=== PATIENT | female | born 1945 | race Caucasian/White ===

== ENCOUNTER 2017-06-27 19:30 | Inpatient (IN) ==
[2017-06-27] MEDS ORDERED: SODIUM CHLORIDE 0.9% 1,000 ML IV STA (20:06)
[2017-06-27 20:16] LABS: Basophils % 0.6 % (0.0-0.8); Eosinophils % 0.2 % (0.00-10.9); Hemoglobin 12.2 GM/DL (12.0-16.0); Immature Granulocytes Absolute 0.05 #; Lymphocytes # 0.5 10*3/uL (1.4-4.0); Lymphocytes % 10.9 % (21.3-54.2); Mean Corpuscular HGB Conc 33.9 GM/DL (32-36); Mean Corpuscular Hemoglobin 31 PG (27-34); Mean Corpuscular Volume 91.1 FL (87-102); Mean Platelet Volume 9.2 FL (9.6-12.0); Monocytes # 0.5 10*3/uL (0.11-0.8); Monocytes % 9.9 % (1.7-12.7); Neutrophils # 3.7 10*3/uL (1.4-7.4); Neutrophils % 77.4 % (38.7-73.9); Platelet Count 193 T/CUMM (130-400); Red Blood Count 3.95 MC/CUMM (3.8-5.5); Red Cell Distribution Width 13.6 % (9.3-17.3); White Blood Count 4.8 T/CUMM (4-12)
[2017-06-27] MEDS ORDERED: CEFEPIME 2,000 MG in SODIUM CHLORIDE 0.9% 100 ML IV STA (20:20)
[2017-06-27] MEDS ORDERED: VANCOMYCIN INJ 1,000 MG in SODIUM CHLORIDE 0.9% 250 ML IV STA (20:39)
[2017-06-27] MEDS ORDERED: CEFEPIME 2,000 MG VIAL ONE (20:46)
[2017-06-27 20:51] LABS: Alanine Aminotransferase 12 U/L (13-56); Albumin 3.3 G/DL (3.4-5.0); Alkaline Phosphatase 50 U/L (45-117); Aspartate Amino Transferase 11 U/L (0-37); Bilirubin,Total < 0.39 MG/DL (0.2-1.0); Blood Urea Nitrogen 16 MG/DL (7-18); Glucose 126 MG/DL (74-106); Potassium 3.6 MMOL/L (3.5-5.1); Sodium 136 MMOL/L (136-145); Total Protein 6.3 G/DL (6.4-8.3)
[2017-06-27 21:31] LABS: Apearance,Urine Slightly Hazy (Clear); Bilirubin,Urine Negative (Negative); Blood, Urine Negative (Negative); Glucose,Urine (UA) Negative (Negative); Hyaline Casts,Urine 1 /LPF (0-3); Ketones,Urine 20 mg/dL (Negative); Mucus,Urine Occasional /LPF (Occasional); Nitrite,Urine Negative (Negative); Protein,Urine Negative; RBC,Urine 1 /HPF (0-4); Squamous Epithelial Cell,Urine Occasional /HPF (0-10); Urine Specific Gravity 1.021 (1.001-1.035); Urine Urobilinogen < 2.0 EU/DL (0.2-1.0); WBC,Urine 1 /HPF (0-6)
[2017-06-27 21:33] LABS: Urine Color GREEN (Yellow)
[2017-06-27] MEDS ORDERED: NOREPINEPHRINE 8 MG in SODIUM CHLORIDE 0.9% 242 ML IV SCH (22:00)
[2017-06-27] MEDS ORDERED: NOREPINEPHRINE 4 MG/4 ML VIAL IV ONE (22:31)
[2017-06-27] MEDS ORDERED: VANCOMYCIN 1,000 MG VIAL ONE (22:31)
[2017-06-27] MEDS ORDERED: diphenhydrAMINE 50 MG/1 ML VIAL ONE (23:44)
[2017-06-28] MEDS ORDERED: DOBUTamine 500 MG/250 ML PREMIX IV ONE (00:18)
[2017-06-28] MEDS ORDERED: NICOTINE 21 MG/24 HR PATCH TRANSDERM PRN (00:20)
[2017-06-28] MEDS: ALBUTEROL/IPRATROPIUM 3 ML NEB RESP TX SCH ×4 (01:03→21:11)
[2017-06-28] MEDS ORDERED: ENOXAPARIN 40 MG/0.4 ML SYRINGE ONE (01:06)
[2017-06-28] MEDS ORDERED: DOXYCYCLINE HYCLATE 100 MG VIAL ONE (01:06)
[2017-06-28] MEDS: ENOXAPARIN 40 MG/0.4 ML SYRINGE SUBCUT SCH (01:40)
[2017-06-28] MEDS: DOBUTamine 500 MG/250 ML PREMIX IV SCH ×2 (01:55→19:46)
[2017-06-28] MEDS ORDERED: DOXYCYCLINE HYCLATE INJ 100 MG in SODIUM CHLORIDE 0.9% 100 ML IV SCH (02:00)
[2017-06-28] MEDS ORDERED: diphenhydrAMINE 50 MG/1 ML VIAL IV ONE (04:03)
[2017-06-28 06:03] LABS: Basophils % 0.5 % (0.0-0.8); Eosinophils # 0.1 10*3/uL (0.0-0.87); Eosinophils % 1.4 % (0.00-10.9); Hemoglobin 11.2 GM/DL (12.0-16.0); Immature Granulocytes % 0.9 %; Immature Granulocytes Absolute 0.04 #; Lymphocytes # 0.9 10*3/uL (1.4-4.0); Lymphocytes % 21.8 % (21.3-54.2); Mean Corpuscular HGB Conc 33.9 GM/DL (32-36); Mean Corpuscular Hemoglobin 30 PG (27-34); Mean Corpuscular Volume 89.7 FL (87-102); Mean Platelet Volume 9.7 FL (9.6-12.0); Monocytes # 0.3 10*3/uL (0.11-0.8); Monocytes % 6.6 % (1.7-12.7); Neutrophils # 2.9 10*3/uL (1.4-7.4); Neutrophils % 68.8 % (38.7-73.9); Platelet Count 187 T/CUMM (130-400); Red Blood Count 3.68 MC/CUMM (3.8-5.5); Red Cell Distribution Width 13.6 % (9.3-17.3); White Blood Count 4.3 T/CUMM (4-12)
[2017-06-28] MEDS: ACETAMINOPHEN 325 MG TABLET PO PRN (06:09)
[2017-06-28 07:30] LABS: Calcium 7.5 MG/DL (8.5-10.1); Osmolality,Calculated 276.5 MOS/KG (273-304); Potassium 3.1 MMOL/L (3.5-5.1); Risk Ratio 4.93; Thyroid Stimulating Hormone 0.451 uIU/ml (0.358-3.74); VLDL CHOLESTEROL 41.8 MG/DL
[2017-06-28] MEDS: CALCIUM (CARBONATE)/VITAMIN D 500 MG-200 UNIT TABLET PO SCH (08:53)
[2017-06-28] MEDS: PANTOPRAZOLE 40 MG TABLET PO SCH (08:54)
[2017-06-28] MEDS ORDERED: BUMETANIDE 1 MG TABLET PO SCH (09:00)
[2017-06-28] MEDS ORDERED: DEXTROSE 50% 25 GM/50 ML VIAL IV PRN (10:01)
[2017-06-28] MEDS ORDERED: GLUCAGON 1 MG VIAL IM PRN (10:01)
[2017-06-28] MEDS ORDERED: INFLUENZA VIRUS VACCINE 0.5 ML SYRINGE IM ONE (11:22)
[2017-06-28] MEDS: INSULIN LISPRO 100 UNIT/ML SUBCUT SCH ×3 (11:50→23:31)
[2017-06-28] MEDS: ATORVASTATIN 20 MG TABLET PO SCH (11:50)
[2017-06-28] MEDS ORDERED: METHEN/SOD PHOS/METH BLUE/HYOS TABLET PO PRN (11:53)
[2017-06-28] MEDS: VANCOMYCIN INJ 1,000 MG in SODIUM CHLORIDE 0.9% 250 ML IV SCH (14:45)
[2017-06-28] MEDS: ONDANSETRON 4 MG/2 ML VIAL IV PRN ×2 (14:47→21:07)
[2017-06-28] MEDS: MAGNESIUM OXIDE 400 MG TABLET PO SCH ×2 (14:55→20:37)
[2017-06-28] MEDS: busPIRone 15 MG TABLET PO SCH ×2 (14:55→20:38)
[2017-06-28] MEDS: GABAPENTIN 600 MG TABLET PO SCH (20:38)
[2017-06-28] MEDS: DOCUSATE SODIUM 100 MG CAPSULE PO SCH (20:38)
[2017-06-28] MEDS ORDERED: POTASSIUM CHLORIDE 20 MEQ PACK PO ONE (20:43)
[2017-06-28] MEDS ORDERED: MAGNESIUM SULF RIDER 2 GM in PREMIX 1 EACH IV ONE (20:43)
[2017-06-28] MEDS ORDERED: NON-FORMULARY MEDICATION (Metformin Hcl [Metformin Hcl] 1,000 MG) PO SCH (21:00)
[2017-06-28] MEDS ORDERED: NON-FORMULARY MEDICATION (Omeprazole [Omeprazole] 20 MG) PO SCH (21:00)
[2017-06-28] MEDS ORDERED: CARVEDILOL 3.125 MG TABLET PO SCH (21:00)
[2017-06-29] MEDS: ALBUTEROL/IPRATROPIUM 3 ML NEB RESP TX SCH ×4 (02:04→20:59)
[2017-06-29] MEDS: VANCOMYCIN INJ 1,000 MG in SODIUM CHLORIDE 0.9% 250 ML IV SCH ×2 (02:05→13:42)
[2017-06-29] MEDS: ENOXAPARIN 40 MG/0.4 ML SYRINGE SUBCUT SCH (02:05)
[2017-06-29] MEDS: DOBUTamine 500 MG/250 ML PREMIX IV SCH ×2 (02:21→13:56)
[2017-06-29 02:29] LABS: Basophils % 0.2 % (0.0-0.8); Eosinophils # 0.1 10*3/uL (0.0-0.87); Eosinophils % 1.1 % (0.00-10.9); Hematocrit 32.2 VOL% (35.7-47.0); Hemoglobin 11.2 GM/DL (12.0-16.0); Immature Granulocytes % 0.7 %; Immature Granulocytes Absolute 0.04 #; Lymphocytes # 0.7 10*3/uL (1.4-4.0); Mean Corpuscular HGB Conc 34.8 GM/DL (32-36); Mean Corpuscular Hemoglobin 31 PG (27-34); Mean Corpuscular Volume 88.2 FL (87-102); Mean Platelet Volume 9.6 FL (9.6-12.0); Monocytes # 0.3 10*3/uL (0.11-0.8); Neutrophils # 4.2 10*3/uL (1.4-7.4); Platelet Count 194 T/CUMM (130-400); Red Blood Count 3.65 MC/CUMM (3.8-5.5); Red Cell Distribution Width 13.5 % (9.3-17.3); White Blood Count 5.4 T/CUMM (4-12)
[2017-06-29 03:08] LABS: Calcium 7.8 MG/DL (8.5-10.1); Osmolality,Calculated 276.8 MOS/KG (273-304); Potassium 3.6 MMOL/L (3.5-5.1)
[2017-06-29] MEDS: INSULIN LISPRO 100 UNIT/ML SUBCUT SCH ×4 (07:24→20:23)
[2017-06-29] MEDS: ASPIRIN 325 MG TABLET PO SCH (08:08)
[2017-06-29] MEDS: ACETAMINOPHEN 325 MG TABLET PO PRN ×2 (08:08→22:01)
[2017-06-29] MEDS: PANTOPRAZOLE 40 MG TABLET PO SCH (08:09)
[2017-06-29] MEDS: CALCIUM (CARBONATE)/VITAMIN D 500 MG-200 UNIT TABLET PO SCH (08:09)
[2017-06-29] MEDS: DOCUSATE SODIUM 100 MG CAPSULE PO SCH ×2 (08:09→20:21)
[2017-06-29] MEDS: MAGNESIUM OXIDE 400 MG TABLET PO SCH ×3 (08:09→20:22)
[2017-06-29] MEDS: busPIRone 15 MG TABLET PO SCH ×3 (08:09→20:23)
[2017-06-29] MEDS: ATORVASTATIN 20 MG TABLET PO SCH (08:09)
[2017-06-29] MEDS: NICOTINE 21 MG/24 HR PATCH TRANSDERM SCH (08:10)
[2017-06-29] MEDS: GABAPENTIN 600 MG TABLET PO SCH ×2 (08:10→20:22)
[2017-06-29] MEDS: CHOLECALCIFEROL 1,000 UNIT TABLET PO SCH (08:10)
[2017-06-29] MEDS: CITALOPRAM 40 MG TABLET PO SCH (08:10)
[2017-06-29] MEDS ORDERED: glipiZIDE 5 MG TABLET PO SCH (09:00)
[2017-06-29] MEDS ORDERED: MIDODRINE 5 MG TABLET PO ONE (12:00)
[2017-06-29] MEDS: MIDODRINE 5 MG TABLET PO SCH ×3 (12:27→20:22)
[2017-06-30] MEDS: ALBUTEROL/IPRATROPIUM 3 ML NEB RESP TX SCH ×4 (00:07→19:03)
[2017-06-30 01:42] LABS: Basophils % 0.4 % (0.0-0.8); Eosinophils # 0.4 10*3/uL (0.0-0.87); Eosinophils % 8.8 % (0.00-10.9); Hematocrit 32.3 VOL% (35.7-47.0); Hemoglobin 11.1 GM/DL (12.0-16.0); Immature Granulocytes % 0.4 %; Immature Granulocytes Absolute 0.02 #; Lymphocytes % 22.5 % (21.3-54.2); Mean Corpuscular HGB Conc 34.4 GM/DL (32-36); Mean Corpuscular Hemoglobin 31 PG (27-34); Mean Platelet Volume 9.2 FL (9.6-12.0); Monocytes # 0.3 10*3/uL (0.11-0.8); Monocytes % 5.7 % (1.7-12.7); Neutrophils # 2.8 10*3/uL (1.4-7.4); Neutrophils % 62.2 % (38.7-73.9); Platelet Count 160 T/CUMM (130-400); Red Blood Count 3.63 MC/CUMM (3.8-5.5); Red Cell Distribution Width 13.7 % (9.3-17.3); White Blood Count 4.5 T/CUMM (4-12)
[2017-06-30 02:14] LABS: Calcium 7.6 MG/DL (8.5-10.1); Osmolality,Calculated 284.4 MOS/KG (273-304); Potassium 3.5 MMOL/L (3.5-5.1)
[2017-06-30 02:15] LABS: Calcium 7.6 MG/DL (8.5-10.1); Osmolality,Calculated 280.7 MOS/KG (273-304); Potassium 3.4 MMOL/L (3.5-5.1)
[2017-06-30] MEDS: VANCOMYCIN INJ 1,000 MG in SODIUM CHLORIDE 0.9% 250 ML IV SCH ×2 (02:21→13:20)
[2017-06-30] MEDS: ENOXAPARIN 40 MG/0.4 ML SYRINGE SUBCUT SCH (02:21)
[2017-06-30] MEDS: DOBUTamine 500 MG/250 ML PREMIX IV SCH (02:22)
[2017-06-30 03:11] LABS: Band Neutrophils 2 % (0-10); Eosinophils 8 % (0-10); Lymphocytes 28 % (20-55); Segmented Neutrophils 60 % (50-85); Total Cells Counted 100
[2017-06-30 03:12] LABS: Platelet Estimate Normal
[2017-06-30] MEDS: INSULIN LISPRO 100 UNIT/ML SUBCUT SCH ×4 (08:54→20:20)
[2017-06-30] MEDS: NICOTINE 21 MG/24 HR PATCH TRANSDERM SCH (08:54)
[2017-06-30] MEDS: CHOLECALCIFEROL 1,000 UNIT TABLET PO SCH (08:55)
[2017-06-30] MEDS: MAGNESIUM OXIDE 400 MG TABLET PO SCH ×3 (08:55→20:19)
[2017-06-30] MEDS: PANTOPRAZOLE 40 MG TABLET PO SCH (08:55)
[2017-06-30] MEDS: busPIRone 15 MG TABLET PO SCH ×3 (08:55→20:20)
[2017-06-30] MEDS: DOCUSATE SODIUM 100 MG CAPSULE PO SCH ×2 (08:55→20:19)
[2017-06-30] MEDS: CALCIUM (CARBONATE)/VITAMIN D 500 MG-200 UNIT TABLET PO SCH (08:55)
[2017-06-30] MEDS: GABAPENTIN 600 MG TABLET PO SCH ×2 (08:55→20:20)
[2017-06-30] MEDS: CITALOPRAM 40 MG TABLET PO SCH (08:55)
[2017-06-30] MEDS: MIDODRINE 5 MG TABLET PO SCH ×4 (08:55→20:19)
[2017-06-30] MEDS: ATORVASTATIN 20 MG TABLET PO SCH (08:56)
[2017-06-30] MEDS: ASPIRIN 325 MG TABLET PO SCH (08:56)
[2017-06-30] MEDS: ACETAMINOPHEN 325 MG TABLET PO PRN (14:37)
[2017-06-30] MEDS ORDERED: POTASSIUM CHLORIDE 20 MEQ PACK PO ONE (16:21)
[2017-06-30] MEDS: ALBUTEROL 2.5 MG/3 ML NEB RESP TX PRN (17:18)
[2017-06-30 17:38] LABS: Amorphous Crystals,Urine Moderate /HPF (Few); Apearance,Urine CLOUDY (Clear); Bilirubin,Urine Negative (Negative); Blood, Urine Negative (Negative); Glucose,Urine (UA) 50 mg/dL (Negative); Ketones,Urine Negative (Negative); Nitrite,Urine Negative (Negative); Protein,Urine Negative; Urine Color Yellow (Yellow); Urine Urobilinogen < 2.0 EU/DL (0.2-1.0)
[2017-07-01] MEDS: ALBUTEROL/IPRATROPIUM 3 ML NEB RESP TX SCH ×4 (00:18→19:17)
[2017-07-01] MEDS: DOBUTamine 500 MG/250 ML PREMIX IV SCH (00:50)
[2017-07-01] MEDS: ENOXAPARIN 40 MG/0.4 ML SYRINGE SUBCUT SCH (01:10)
[2017-07-01] MEDS: VANCOMYCIN INJ 1,000 MG in SODIUM CHLORIDE 0.9% 250 ML IV SCH ×2 (01:10→16:04)
[2017-07-01] MEDS ORDERED: ALBUTEROL NEB SOLN 5 MG/ML 20 ML/BOTTLE CONT NEB ONE (02:00)
[2017-07-01] MEDS: ALBUTEROL 2.5 MG/3 ML NEB RESP TX PRN (02:22)
[2017-07-01 05:08] LABS: Basophils % 0.2 % (0.0-0.8); Eosinophils # 0.4 10*3/uL (0.0-0.87); Eosinophils % 9.9 % (0.00-10.9); Hematocrit 33.7 VOL% (35.7-47.0); Hemoglobin 11.3 GM/DL (12.0-16.0); Immature Granulocytes % 0.5 %; Immature Granulocytes Absolute 0.02 #; Lymphocytes # 1.3 10*3/uL (1.4-4.0); Lymphocytes % 31.9 % (21.3-54.2); Mean Corpuscular HGB Conc 33.5 GM/DL (32-36); Mean Corpuscular Hemoglobin 31 PG (27-34); Mean Corpuscular Volume 91.1 FL (87-102); Mean Platelet Volume 9.9 FL (9.6-12.0); Monocytes # 0.2 10*3/uL (0.11-0.8); Monocytes % 4.6 % (1.7-12.7); Neutrophils # 2.2 10*3/uL (1.4-7.4); Neutrophils % 52.9 % (38.7-73.9); Platelet Count 149 T/CUMM (130-400); Red Cell Distribution Width 14.2 % (9.3-17.3); White Blood Count 4.1 T/CUMM (4-12)
[2017-07-01 05:35] LABS: Calcium 7.7 MG/DL (8.5-10.1); Osmolality,Calculated 286.5 MOS/KG (273-304); Potassium 4.4 MMOL/L (3.5-5.1)
[2017-07-01 05:51] LABS: Microcytosis 1+; Platelet Estimate Adequate
[2017-07-01] MEDS: CITALOPRAM 40 MG TABLET PO SCH (08:40)
[2017-07-01] MEDS: MIDODRINE 5 MG TABLET PO SCH ×4 (08:40→21:17)
[2017-07-01] MEDS: DOCUSATE SODIUM 100 MG CAPSULE PO SCH ×2 (08:40→20:24)
[2017-07-01] MEDS: CHOLECALCIFEROL 1,000 UNIT TABLET PO SCH (08:40)
[2017-07-01] MEDS: NICOTINE 21 MG/24 HR PATCH TRANSDERM SCH (08:41)
[2017-07-01] MEDS: busPIRone 15 MG TABLET PO SCH ×3 (08:41→20:36)
[2017-07-01] MEDS: ACETAMINOPHEN 325 MG TABLET PO PRN (08:41)
[2017-07-01] MEDS: ASPIRIN 325 MG TABLET PO SCH (08:41)
[2017-07-01] MEDS: ATORVASTATIN 20 MG TABLET PO SCH (08:41)
[2017-07-01] MEDS: CALCIUM (CARBONATE)/VITAMIN D 500 MG-200 UNIT TABLET PO SCH (08:41)
[2017-07-01] MEDS: GABAPENTIN 600 MG TABLET PO SCH ×2 (08:47→20:24)
[2017-07-01] MEDS: MAGNESIUM OXIDE 400 MG TABLET PO SCH ×3 (08:47→20:25)
[2017-07-01] MEDS: INSULIN LISPRO 100 UNIT/ML SUBCUT SCH ×4 (08:47→21:15)
[2017-07-01] MEDS: SODIUM CHLORIDE 0.9% 1,000 ML IV SCH ×2 (11:30→21:09)
[2017-07-01] MEDS: PANTOPRAZOLE 40 MG TABLET PO SCH (14:00)
[2017-07-02] MEDS: SODIUM CHLORIDE 0.9% 1,000 ML IV SCH ×3 (00:30→20:15)
[2017-07-02] MEDS: DOBUTamine 500 MG/250 ML PREMIX IV SCH (00:44)
[2017-07-02] MEDS: ENOXAPARIN 40 MG/0.4 ML SYRINGE SUBCUT SCH (00:44)
[2017-07-02] MEDS: VANCOMYCIN INJ 1,000 MG in SODIUM CHLORIDE 0.9% 250 ML IV SCH ×2 (01:00→15:22)
[2017-07-02] MEDS: ALBUTEROL/IPRATROPIUM 3 ML NEB RESP TX SCH ×4 (03:03→20:48)
[2017-07-02 05:54] LABS: Basophils % 0.5 % (0.0-0.8); Eosinophils # 0.8 10*3/uL (0.0-0.87); Eosinophils % 11.9 % (0.00-10.9); Hematocrit 33.6 VOL% (35.7-47.0); Hemoglobin 10.9 GM/DL (12.0-16.0); Immature Granulocytes % 0.5 %; Immature Granulocytes Absolute 0.03 #; Lymphocytes # 2.8 10*3/uL (1.4-4.0); Lymphocytes % 42.7 % (21.3-54.2); Mean Corpuscular HGB Conc 32.4 GM/DL (32-36); Mean Corpuscular Hemoglobin 31 PG (27-34); Mean Corpuscular Volume 95.2 FL (87-102); Mean Platelet Volume 10.2 FL (9.6-12.0); Monocytes # 0.4 10*3/uL (0.11-0.8); Monocytes % 6.7 % (1.7-12.7); Neutrophils # 2.5 10*3/uL (1.4-7.4); Neutrophils % 37.7 % (38.7-73.9); Platelet Count 128 T/CUMM (130-400); Red Blood Count 3.53 MC/CUMM (3.8-5.5); Red Cell Distribution Width 14.5 % (9.3-17.3); White Blood Count 6.6 T/CUMM (4-12)
[2017-07-02 06:34] LABS: Band Neutrophils 4 % (0-10); Eosinophils 2 % (0-10); Lymphocytes 42 % (20-55); Macrocytosis 1+; Platelet Estimate Normal; Segmented Neutrophils 50 % (50-85); Total Cells Counted 100
[2017-07-02 06:48] LABS: Calcium 7.5 MG/DL (8.5-10.1); Osmolality,Calculated 279.4 MOS/KG (273-304); Potassium 4.8 MMOL/L (3.5-5.1)
[2017-07-02] MEDS: LORazepam 2 MG/1 ML VIAL IV PRN ×2 (09:12→20:23)
[2017-07-02] MEDS: NICOTINE 21 MG/24 HR PATCH TRANSDERM SCH (09:19)
[2017-07-02] MEDS: INSULIN LISPRO 100 UNIT/ML SUBCUT SCH ×4 (09:25→20:23)
[2017-07-02] MEDS: DOCUSATE SODIUM 100 MG CAPSULE PO SCH ×2 (10:22→20:30)
[2017-07-02] MEDS: MAGNESIUM OXIDE 400 MG TABLET PO SCH ×3 (10:22→20:18)
[2017-07-02] MEDS: busPIRone 15 MG TABLET PO SCH ×3 (10:22→20:18)
[2017-07-02] MEDS: MIDODRINE 5 MG TABLET PO SCH ×4 (10:23→20:18)
[2017-07-02 11:34] LABS: ABG Base Excess -2.3 MMOL/L (-2.5-2.5); ABG HCO3 22.5 MMOL/L (20-26); ABG Oxygen Saturation 99.5 % (95-100); ABG PH 7.262 (7.35-7.45); ABG TCO2 23.4 MMOL/L (23-27)
[2017-07-02] MEDS: CALCIUM (CARBONATE)/VITAMIN D 500 MG-200 UNIT TABLET PO SCH (12:01)
[2017-07-02] MEDS: GABAPENTIN 600 MG TABLET PO SCH ×2 (12:01→20:18)
[2017-07-02] MEDS: ATORVASTATIN 20 MG TABLET PO SCH ×2 (12:01→20:18)
[2017-07-02] MEDS: ASPIRIN 325 MG TABLET PO SCH (12:01)
[2017-07-02] MEDS: CITALOPRAM 40 MG TABLET PO SCH (12:01)
[2017-07-02] MEDS: CHOLECALCIFEROL 1,000 UNIT TABLET PO SCH (12:02)
[2017-07-02] MEDS: PANTOPRAZOLE 40 MG TABLET PO SCH (12:02)
[2017-07-02] MEDS: methylPREDNISolone SOD SUC 40 MG/1 ML VIAL IV SCH ×2 (12:46→20:25)
[2017-07-02] MEDS ORDERED: FUROSEMIDE 20 MG/2 ML VIAL IV ONE (15:17)
[2017-07-03] MEDS: ALBUTEROL/IPRATROPIUM 3 ML NEB RESP TX SCH ×6 (00:56→20:05)
[2017-07-03] MEDS: VANCOMYCIN INJ 1,000 MG in SODIUM CHLORIDE 0.9% 250 ML IV SCH ×2 (01:40→14:53)
[2017-07-03] MEDS: ENOXAPARIN 40 MG/0.4 ML SYRINGE SUBCUT SCH (01:40)
[2017-07-03] MEDS: DOBUTamine 500 MG/250 ML PREMIX IV SCH (02:53)
[2017-07-03 03:59] LABS: ABG Base Excess 0.6 MMOL/L (-2.5-2.5); ABG HCO3 26.3 MMOL/L (20-26); ABG Oxygen Saturation 97.6 % (95-100); ABG PH 7.365 (7.35-7.45); ABG TCO2 27.7 MMOL/L (23-27); Allen Test Positive; Pt O2 Delivery Device BIPAP
[2017-07-03] MEDS: SODIUM CHLORIDE 0.9% 1,000 ML IV SCH ×3 (04:14→14:39)
[2017-07-03] MEDS: methylPREDNISolone SOD SUC 40 MG/1 ML VIAL IV SCH ×3 (04:16→21:20)
[2017-07-03 06:14] LABS: Basophils % 0.2 % (0.0-0.8); Immature Granulocytes % 0.8 %; Immature Granulocytes Absolute 0.04 #; Lymphocytes # 1.5 10*3/uL (1.4-4.0); Lymphocytes % 29.9 % (21.3-54.2); Mean Corpuscular HGB Conc 32.4 GM/DL (32-36); Mean Corpuscular Hemoglobin 31 PG (27-34); Mean Corpuscular Volume 94.4 FL (87-102); Mean Platelet Volume 10.3 FL (9.6-12.0); Monocytes # 0.3 10*3/uL (0.11-0.8); Neutrophils # 3.2 10*3/uL (1.4-7.4); Neutrophils % 64.1 % (38.7-73.9); Platelet Count 148 T/CUMM (130-400); Red Cell Distribution Width 14.5 % (9.3-17.3)
[2017-07-03 06:46] LABS: Calcium 7.5 MG/DL (8.5-10.1); Osmolality,Calculated 289.3 MOS/KG (273-304); Potassium 5.2 MMOL/L (3.5-5.1)
[2017-07-03 07:14] LABS: Band Neutrophils 2 % (0-10); Lymphocytes 31 % (20-55); Macrocytosis 1+; Platelet Estimate Normal; Segmented Neutrophils 62 % (50-85); Total Cells Counted 100
[2017-07-03] MEDS: LORazepam 2 MG/1 ML VIAL IV PRN (08:08)
[2017-07-03] MEDS: INSULIN LISPRO 100 UNIT/ML SUBCUT SCH ×4 (08:30→21:30)
[2017-07-03] MEDS: busPIRone 15 MG TABLET PO SCH ×3 (09:27→21:22)
[2017-07-03] MEDS: ASPIRIN 325 MG TABLET PO SCH (09:27)
[2017-07-03] MEDS: NICOTINE 21 MG/24 HR PATCH TRANSDERM SCH (09:28)
[2017-07-03] MEDS: GABAPENTIN 600 MG TABLET PO SCH ×2 (09:28→21:23)
[2017-07-03] MEDS: DOCUSATE SODIUM 100 MG CAPSULE PO SCH ×2 (09:28→21:23)
[2017-07-03] MEDS: CITALOPRAM 40 MG TABLET PO SCH (09:28)
[2017-07-03] MEDS: MAGNESIUM OXIDE 400 MG TABLET PO SCH ×4 (09:28→21:43)
[2017-07-03] MEDS: CALCIUM (CARBONATE)/VITAMIN D 500 MG-200 UNIT TABLET PO SCH (09:29)
[2017-07-03] MEDS: PANTOPRAZOLE 40 MG TABLET PO SCH (09:29)
[2017-07-03] MEDS: CHOLECALCIFEROL 1,000 UNIT TABLET PO SCH (09:30)
[2017-07-03] MEDS: MIDODRINE 5 MG TABLET PO SCH ×4 (09:30→21:24)
[2017-07-03] MEDS ORDERED: FUROSEMIDE 40 MG/4 ML VIAL IV ONE (15:46)
[2017-07-03] MEDS: ATORVASTATIN 20 MG TABLET PO SCH (21:24)
[2017-07-04] MEDS: ALBUTEROL/IPRATROPIUM 3 ML NEB RESP TX SCH ×7 (01:15→23:27)
[2017-07-04] MEDS: SODIUM CHLORIDE 0.9% 1,000 ML IV SCH ×3 (02:08→14:28)
[2017-07-04] MEDS: ENOXAPARIN 40 MG/0.4 ML SYRINGE SUBCUT SCH (02:09)
[2017-07-04] MEDS: VANCOMYCIN INJ 1,000 MG in SODIUM CHLORIDE 0.9% 250 ML IV SCH ×2 (02:44→14:25)
[2017-07-04] MEDS: methylPREDNISolone SOD SUC 40 MG/1 ML VIAL IV SCH ×4 (04:32→21:47)
[2017-07-04 04:43] LABS: Basophils % 0.1 % (0.0-0.8); Hematocrit 35.2 VOL% (35.7-47.0); Hemoglobin 10.9 GM/DL (12.0-16.0); Immature Granulocytes % 0.7 %; Immature Granulocytes Absolute 0.06 #; Lymphocytes # 1.5 10*3/uL (1.4-4.0); Mean Corpuscular Hemoglobin 30 PG (27-34); Mean Corpuscular Volume 95.7 FL (87-102); Mean Platelet Volume 10.7 FL (9.6-12.0); Monocytes # 0.5 10*3/uL (0.11-0.8); Monocytes % 6.1 % (1.7-12.7); Neutrophils # 6.7 10*3/uL (1.4-7.4); Neutrophils % 76.1 % (38.7-73.9); Platelet Count 183 T/CUMM (130-400); Red Blood Count 3.68 MC/CUMM (3.8-5.5); Red Cell Distribution Width 14.6 % (9.3-17.3); White Blood Count 8.8 T/CUMM (4-12)
[2017-07-04 04:55] LABS: ABG Base Excess 0.8 MMOL/L (-2.5-2.5); ABG HCO3 25.1 MMOL/L (20-26); ABG Oxygen Saturation 98.5 % (95-100); ABG PCO2 45.1 MM HG (35-48); ABG PH 7.375 (7.35-7.45); ABG TCO2 23.6 MMOL/L (23-27); Allen Test Positive; Pt O2 Delivery Device BIPAP
[2017-07-04 05:04] LABS: Giant Platelets Few; Hypochromasia 1+; Ovalocytes Slight; Platelet Estimate Adequate
[2017-07-04 05:05] LABS: Microcytosis Slight
[2017-07-04 05:11] LABS: Calcium 7.4 MG/DL (8.5-10.1); Osmolality,Calculated 289.1 MOS/KG (273-304); Potassium 4.6 MMOL/L (3.5-5.1)
[2017-07-04 05:43] LABS: Calcium 7.4 MG/DL (8.5-10.1); Osmolality,Calculated 287.3 MOS/KG (273-304); Potassium 4.6 MMOL/L (3.5-5.1)
[2017-07-04] MEDS: INSULIN LISPRO 100 UNIT/ML SUBCUT SCH ×4 (09:45→21:30)
[2017-07-04] MEDS: NICOTINE 21 MG/24 HR PATCH TRANSDERM SCH (09:46)
[2017-07-04] MEDS: GABAPENTIN 600 MG TABLET PO SCH ×2 (09:47→21:46)
[2017-07-04] MEDS: CHOLECALCIFEROL 1,000 UNIT TABLET PO SCH (09:47)
[2017-07-04] MEDS: MAGNESIUM OXIDE 400 MG TABLET PO SCH ×3 (09:47→21:46)
[2017-07-04] MEDS: DOCUSATE SODIUM 100 MG CAPSULE PO SCH ×2 (09:47→21:45)
[2017-07-04] MEDS: MIDODRINE 5 MG TABLET PO SCH ×4 (09:48→21:50)
[2017-07-04] MEDS: PANTOPRAZOLE 40 MG TABLET PO SCH (09:48)
[2017-07-04] MEDS: ASPIRIN 325 MG TABLET PO SCH (09:48)
[2017-07-04] MEDS: CALCIUM (CARBONATE)/VITAMIN D 500 MG-200 UNIT TABLET PO SCH (09:48)
[2017-07-04] MEDS: CITALOPRAM 40 MG TABLET PO SCH (09:48)
[2017-07-04] MEDS: busPIRone 15 MG TABLET PO SCH ×3 (09:48→21:44)
[2017-07-04] MEDS: DOBUTamine 500 MG/250 ML PREMIX IV SCH (09:58)
[2017-07-04] MEDS ORDERED: LORazepam 2 MG/1 ML VIAL IV PRN (12:06)
[2017-07-04] MEDS ORDERED: FUROSEMIDE 40 MG/4 ML VIAL IV ONE (15:06)
[2017-07-04] MEDS: AZITHROMYCIN INJ 250 MG in SODIUM CHLORIDE 0.9% 250 ML IV SCH (16:45)
[2017-07-04] MEDS: ATORVASTATIN 20 MG TABLET PO SCH (21:47)
[2017-07-05] MEDS: SODIUM CHLORIDE 0.9% 1,000 ML IV SCH ×2 (01:36→18:57)
[2017-07-05] MEDS: ENOXAPARIN 40 MG/0.4 ML SYRINGE SUBCUT SCH (02:05)
[2017-07-05] MEDS: DOBUTamine 500 MG/250 ML PREMIX IV SCH (02:13)
[2017-07-05] MEDS: ALBUTEROL/IPRATROPIUM 3 ML NEB RESP TX SCH ×5 (03:28→21:45)
[2017-07-05] MEDS: methylPREDNISolone SOD SUC 40 MG/1 ML VIAL IV SCH ×4 (03:41→22:01)
[2017-07-05 05:10] LABS: Basophils % 0.1 % (0.0-0.8); Hematocrit 36.5 VOL% (35.7-47.0); Hemoglobin 11.2 GM/DL (12.0-16.0); Immature Granulocytes % 1.3 %; Immature Granulocytes Absolute 0.12 #; Lymphocytes # 0.8 10*3/uL (1.4-4.0); Lymphocytes % 8.6 % (21.3-54.2); Mean Corpuscular HGB Conc 30.7 GM/DL (32-36); Mean Corpuscular Hemoglobin 30 PG (27-34); Mean Corpuscular Volume 96.6 FL (87-102); Mean Platelet Volume 10.3 FL (9.6-12.0); Monocytes # 0.5 10*3/uL (0.11-0.8); Monocytes % 5.4 % (1.7-12.7); Neutrophils # 7.6 10*3/uL (1.4-7.4); Neutrophils % 84.6 % (38.7-73.9); Platelet Count 222 T/CUMM (130-400); Red Blood Count 3.78 MC/CUMM (3.8-5.5); Red Cell Distribution Width 14.6 % (9.3-17.3); White Blood Count 8.9 T/CUMM (4-12)
[2017-07-05 06:18] LABS: Calcium 7.6 MG/DL (8.5-10.1); Osmolality,Calculated 294.3 MOS/KG (273-304); Potassium 4.6 MMOL/L (3.5-5.1)
[2017-07-05] MEDS ORDERED: FUROSEMIDE 40 MG/4 ML VIAL ONE (06:34)
[2017-07-05] MEDS: clonazePAM 0.5 MG TABLET PO PRN ×3 (06:39→22:00)
[2017-07-05] MEDS: FUROSEMIDE 40 MG/4 ML VIAL IV SCH ×2 (06:39→16:40)
[2017-07-05] MEDS: INSULIN LISPRO 100 UNIT/ML SUBCUT SCH ×4 (09:25→22:01)
[2017-07-05] MEDS: NICOTINE 21 MG/24 HR PATCH TRANSDERM SCH (09:25)
[2017-07-05] MEDS: CHOLECALCIFEROL 1,000 UNIT TABLET PO SCH (09:26)
[2017-07-05] MEDS: CITALOPRAM 40 MG TABLET PO SCH (09:26)
[2017-07-05] MEDS: MIDODRINE 5 MG TABLET PO SCH ×4 (09:26→22:00)
[2017-07-05] MEDS: GABAPENTIN 600 MG TABLET PO SCH ×2 (09:27→22:00)
[2017-07-05] MEDS: PANTOPRAZOLE 40 MG TABLET PO SCH (09:27)
[2017-07-05] MEDS: ASPIRIN 325 MG TABLET PO SCH (09:27)
[2017-07-05] MEDS: DOCUSATE SODIUM 100 MG CAPSULE PO SCH ×3 (09:27→22:59)
[2017-07-05] MEDS: MAGNESIUM OXIDE 400 MG TABLET PO SCH ×3 (09:27→21:59)
[2017-07-05] MEDS: CALCIUM (CARBONATE)/VITAMIN D 500 MG-200 UNIT TABLET PO SCH (09:27)
[2017-07-05] MEDS: busPIRone 15 MG TABLET PO SCH ×3 (09:27→22:01)
[2017-07-05] MEDS: AZITHROMYCIN INJ 250 MG in SODIUM CHLORIDE 0.9% 250 ML IV SCH (16:40)
[2017-07-05] MEDS: ATORVASTATIN 20 MG TABLET PO SCH (22:01)
[2017-07-06] MEDS: ALBUTEROL/IPRATROPIUM 3 ML NEB RESP TX SCH ×6 (00:30→21:14)
[2017-07-06] MEDS: DOBUTamine 500 MG/250 ML PREMIX IV SCH (03:02)
[2017-07-06] MEDS: methylPREDNISolone SOD SUC 40 MG/1 ML VIAL IV SCH ×3 (03:17→22:05)
[2017-07-06] MEDS: ENOXAPARIN 40 MG/0.4 ML SYRINGE SUBCUT SCH (03:17)
[2017-07-06 05:08] LABS: Hematocrit 33.5 VOL% (35.7-47.0); Hemoglobin 10.8 GM/DL (12.0-16.0); Immature Granulocytes Absolute 0.07 #; Lymphocytes # 0.5 10*3/uL (1.4-4.0); Lymphocytes % 6.8 % (21.3-54.2); Mean Corpuscular HGB Conc 32.2 GM/DL (32-36); Mean Corpuscular Hemoglobin 30 PG (27-34); Mean Corpuscular Volume 94.1 FL (87-102); Mean Platelet Volume 10.6 FL (9.6-12.0); Monocytes # 0.4 10*3/uL (0.11-0.8); Monocytes % 5.8 % (1.7-12.7); Neutrophils % 86.4 % (38.7-73.9); Platelet Count 252 T/CUMM (130-400); Red Blood Count 3.56 MC/CUMM (3.8-5.5); White Blood Count 6.9 T/CUMM (4-12)
[2017-07-06 05:40] LABS: Calcium 8.3 MG/DL (8.5-10.1); Osmolality,Calculated 299.3 MOS/KG (273-304); Potassium 3.8 MMOL/L (3.5-5.1)
[2017-07-06] MEDS: ASPIRIN 325 MG TABLET PO SCH (09:30)
[2017-07-06] MEDS: CITALOPRAM 40 MG TABLET PO SCH (09:30)
[2017-07-06] MEDS: CALCIUM (CARBONATE)/VITAMIN D 500 MG-200 UNIT TABLET PO SCH (09:30)
[2017-07-06] MEDS: CHOLECALCIFEROL 1,000 UNIT TABLET PO SCH (09:30)
[2017-07-06] MEDS: MAGNESIUM OXIDE 400 MG TABLET PO SCH ×3 (09:30→22:13)
[2017-07-06] MEDS: GABAPENTIN 600 MG TABLET PO SCH ×2 (09:30→22:13)
[2017-07-06] MEDS: MIDODRINE 5 MG TABLET PO SCH ×4 (09:31→22:14)
[2017-07-06] MEDS: DOCUSATE SODIUM 100 MG CAPSULE PO SCH ×2 (09:31→22:13)
[2017-07-06] MEDS: NICOTINE 21 MG/24 HR PATCH TRANSDERM SCH (09:31)
[2017-07-06] MEDS: busPIRone 15 MG TABLET PO SCH ×2 (09:31→17:02)
[2017-07-06] MEDS: FUROSEMIDE 40 MG/4 ML VIAL IV SCH ×2 (09:33→21:58)
[2017-07-06] MEDS: INSULIN LISPRO 100 UNIT/ML SUBCUT SCH ×4 (09:34→22:07)
[2017-07-06] MEDS: PANTOPRAZOLE 40 MG TABLET PO SCH (09:35)
[2017-07-06] MEDS: clonazePAM 0.5 MG TABLET PO PRN (10:08)
[2017-07-06 18:11] LABS: ABG Base Excess 11.5 MMOL/L (-2.5-2.5); ABG HCO3 35.3 MMOL/L (20-26); ABG Oxygen Saturation 95.2 % (95-100); ABG PCO2 53.8 MM HG (35-48); ABG PH 7.452 (7.35-7.45); ABG PO2 76.6 MM HG (80-95); ABG TCO2 33.7 MMOL/L (23-27)
[2017-07-06] MEDS ORDERED: SODIUM CHLORIDE 0.9% 1,000 ML IV ONE (18:41)
[2017-07-06 20:04] LABS: ABG Base Excess 14.4 MMOL/L (-2.5-2.5); ABG HCO3 39.8 MMOL/L (20-26); ABG Oxygen Saturation 93.4 % (95-100); ABG PCO2 53.9 MM HG (35-48); ABG PH 7.486 (7.35-7.45); ABG PO2 70.7 MM HG (80-95); ABG TCO2 41.4 MMOL/L (23-27); Allen Test Positive; Pt O2 Delivery Device BIPAP
[2017-07-06] MEDS: AZITHROMYCIN INJ 250 MG in SODIUM CHLORIDE 0.9% 250 ML IV SCH (20:54)
[2017-07-06] MEDS: ATORVASTATIN 20 MG TABLET PO SCH (22:13)
[2017-07-07] MEDS ORDERED: ETOMIDATE 20 MG/10 ML VIAL IV ONE (00:21)
[2017-07-07] MEDS ORDERED: SUCCINYLCHOLINE 200 MG/10 ML VIAL ONE (00:21)
[2017-07-07] MEDS: ALBUTEROL/IPRATROPIUM 3 ML NEB RESP TX SCH ×7 (01:18→23:35)
[2017-07-07] MEDS: DOBUTamine 500 MG/250 ML PREMIX IV SCH (01:24)
[2017-07-07] MEDS: ENOXAPARIN 40 MG/0.4 ML SYRINGE SUBCUT SCH (01:29)
[2017-07-07] MEDS: INSULIN LISPRO 100 UNIT/ML SUBCUT SCH ×6 (01:29→20:51)
[2017-07-07 05:38] LABS: Hematocrit 33.4 VOL% (35.7-47.0); Hemoglobin 11.1 GM/DL (12.0-16.0); Immature Granulocytes % 0.7 %; Immature Granulocytes Absolute 0.04 #; Lymphocytes # 0.5 10*3/uL (1.4-4.0); Lymphocytes % 7.8 % (21.3-54.2); Mean Corpuscular HGB Conc 33.2 GM/DL (32-36); Mean Corpuscular Hemoglobin 30 PG (27-34); Mean Corpuscular Volume 91.3 FL (87-102); Monocytes # 0.4 10*3/uL (0.11-0.8); Monocytes % 7.2 % (1.7-12.7); Neutrophils # 5.1 10*3/uL (1.4-7.4); Neutrophils % 84.3 % (38.7-73.9); Platelet Count 258 T/CUMM (130-400); Red Blood Count 3.66 MC/CUMM (3.8-5.5); Red Cell Distribution Width 13.8 % (9.3-17.3)
[2017-07-07 06:10] LABS: Calcium 8.7 MG/DL (8.5-10.1); Osmolality,Calculated 288.8 MOS/KG (273-304)
[2017-07-07 07:46] LABS: ABG Base Excess 19.3 MMOL/L (-2.5-2.5); ABG HCO3 43.6 MMOL/L (20-26); ABG Oxygen Saturation 95.6 % (95-100); ABG PCO2 53.5 MM HG (35-48); ABG PH 7.536 (7.35-7.45); ABG PO2 71.8 MM HG (80-95); ABG TCO2 40.4 MMOL/L (23-27)
[2017-07-07] MEDS: methylPREDNISolone SOD SUC 40 MG/1 ML VIAL IV SCH ×2 (09:41→20:51)
[2017-07-07] MEDS: FUROSEMIDE 40 MG/4 ML VIAL IV SCH ×2 (09:43→16:42)
[2017-07-07] MEDS: CHOLECALCIFEROL 1,000 UNIT TABLET PO SCH (09:44)
[2017-07-07] MEDS: DOCUSATE SODIUM 100 MG CAPSULE PO SCH ×2 (09:44→20:45)
[2017-07-07] MEDS: CALCIUM (CARBONATE)/VITAMIN D 500 MG-200 UNIT TABLET PO SCH (09:44)
[2017-07-07] MEDS: ASPIRIN 325 MG TABLET PO SCH (09:44)
[2017-07-07] MEDS: MAGNESIUM OXIDE 400 MG TABLET PO SCH ×3 (09:45→20:45)
[2017-07-07] MEDS: CITALOPRAM 40 MG TABLET PO SCH (09:45)
[2017-07-07] MEDS: MIDODRINE 5 MG TABLET PO SCH ×4 (09:45→20:44)
[2017-07-07] MEDS: NICOTINE 21 MG/24 HR PATCH TRANSDERM SCH (09:45)
[2017-07-07] MEDS: PANTOPRAZOLE 40 MG TABLET PO SCH (09:45)
[2017-07-07] MEDS: GABAPENTIN 600 MG TABLET PO SCH ×2 (09:45→20:45)
[2017-07-07] MEDS: AZITHROMYCIN INJ 250 MG in SODIUM CHLORIDE 0.9% 250 ML IV SCH (16:43)
[2017-07-07] MEDS: ATORVASTATIN 20 MG TABLET PO SCH (20:45)
[2017-07-08] MEDS: ENOXAPARIN 40 MG/0.4 ML SYRINGE SUBCUT SCH (00:55)
[2017-07-08] MEDS: INSULIN LISPRO 100 UNIT/ML SUBCUT SCH ×6 (00:55→20:30)
[2017-07-08] MEDS: DOBUTamine 500 MG/250 ML PREMIX IV SCH ×2 (01:13→23:46)
[2017-07-08] MEDS: POTASSIUM CHLORIDE 20 MEQ TABLET PO PRN ×6 (01:54→20:28)
[2017-07-08] MEDS: ALBUTEROL/IPRATROPIUM 3 ML NEB RESP TX SCH ×5 (02:54→19:36)
[2017-07-08 03:45] LABS: ABG Base Excess 14.5 MMOL/L (-2.5-2.5); ABG HCO3 38.3 MMOL/L (20-26); ABG Oxygen Saturation 92.6 % (95-100); ABG PCO2 50.3 MM HG (35-48); ABG PO2 63.6 MM HG (80-95); ABG TCO2 34.8 MMOL/L (23-27); Allen Test Positive; Pt O2 Delivery Device BIPAP
[2017-07-08 04:56] LABS: Hemoglobin 13.1 GM/DL (12.0-16.0); Red Blood Count 4.34 MC/CUMM (3.8-5.5); White Blood Count 11.2 T/CUMM (4-12)
[2017-07-08 04:57] LABS: Basophils % 0.1 % (0.0-0.8); Immature Granulocytes % 0.9 %; Lymphocytes # 0.8 10*3/uL (1.4-4.0); Lymphocytes % 7.2 % (21.3-54.2); Mean Corpuscular HGB Conc 33.6 GM/DL (32-36); Mean Corpuscular Hemoglobin 30 PG (27-34); Mean Corpuscular Volume 89.9 FL (87-102); Mean Platelet Volume 9.9 FL (9.6-12.0); Monocytes # 0.6 10*3/uL (0.11-0.8); Monocytes % 5.6 % (1.7-12.7); Neutrophils # 9.6 10*3/uL (1.4-7.4); Neutrophils % 86.2 % (38.7-73.9); Platelet Count 374 T/CUMM (130-400); Red Cell Distribution Width 13.7 % (9.3-17.3)
[2017-07-08 05:25] LABS: Calcium 9.2 MG/DL (8.5-10.1); Osmolality,Calculated 283.1 MOS/KG (273-304); Potassium 3.2 MMOL/L (3.5-5.1)
[2017-07-08] MEDS: MAGNESIUM OXIDE 400 MG TABLET PO SCH ×3 (08:40→20:30)
[2017-07-08] MEDS: GABAPENTIN 600 MG TABLET PO SCH ×2 (08:40→20:28)
[2017-07-08] MEDS: FUROSEMIDE 40 MG/4 ML VIAL IV SCH ×2 (08:40→17:13)
[2017-07-08] MEDS: CHOLECALCIFEROL 1,000 UNIT TABLET PO SCH (08:40)
[2017-07-08] MEDS: PANTOPRAZOLE 40 MG TABLET PO SCH (08:41)
[2017-07-08] MEDS: CITALOPRAM 40 MG TABLET PO SCH (08:41)
[2017-07-08] MEDS: ASPIRIN 325 MG TABLET PO SCH (08:41)
[2017-07-08] MEDS: methylPREDNISolone SOD SUC 40 MG/1 ML VIAL IV SCH ×2 (08:41→20:30)
[2017-07-08] MEDS: DOCUSATE SODIUM 100 MG CAPSULE PO SCH ×2 (08:41→20:28)
[2017-07-08] MEDS: CALCIUM (CARBONATE)/VITAMIN D 500 MG-200 UNIT TABLET PO SCH (08:41)
[2017-07-08] MEDS: NICOTINE 21 MG/24 HR PATCH TRANSDERM SCH (08:42)
[2017-07-08] MEDS: MIDODRINE 5 MG TABLET PO SCH ×4 (12:25→20:28)
[2017-07-08] MEDS: AZITHROMYCIN INJ 250 MG in SODIUM CHLORIDE 0.9% 250 ML IV SCH (17:23)
[2017-07-08] MEDS: ATORVASTATIN 20 MG TABLET PO SCH (20:28)
[2017-07-09] MEDS: ALBUTEROL/IPRATROPIUM 3 ML NEB RESP TX SCH ×6 (00:02→20:34)
[2017-07-09] MEDS: INSULIN LISPRO 100 UNIT/ML SUBCUT SCH ×6 (00:04→20:54)
[2017-07-09] MEDS: ENOXAPARIN 40 MG/0.4 ML SYRINGE SUBCUT SCH (00:04)
[2017-07-09 06:11] LABS: Allen Test Positive; Pt O2 Delivery Device BIPAP
[2017-07-09 06:12] LABS: ABG Base Excess 9.1 MMOL/L (-2.5-2.5); ABG HCO3 33.9 MMOL/L (20-26); ABG Oxygen Saturation 95.4 % (95-100); ABG PCO2 46.1 MM HG (35-48); ABG PH 7.484 (7.35-7.45); ABG TCO2 35.3 MMOL/L (23-27)
[2017-07-09] MEDS: FUROSEMIDE 40 MG/4 ML VIAL IV SCH (08:41)
[2017-07-09] MEDS: CITALOPRAM 40 MG TABLET PO SCH (08:42)
[2017-07-09] MEDS: NICOTINE 21 MG/24 HR PATCH TRANSDERM SCH (08:42)
[2017-07-09] MEDS: DOCUSATE SODIUM 100 MG CAPSULE PO SCH ×2 (08:42→20:50)
[2017-07-09] MEDS: GABAPENTIN 600 MG TABLET PO SCH ×2 (08:43→20:50)
[2017-07-09] MEDS: ASPIRIN 325 MG TABLET PO SCH (08:43)
[2017-07-09] MEDS: CHOLECALCIFEROL 1,000 UNIT TABLET PO SCH (08:43)
[2017-07-09] MEDS: MIDODRINE 5 MG TABLET PO SCH ×4 (08:43→20:59)
[2017-07-09] MEDS: PANTOPRAZOLE 40 MG TABLET PO SCH (08:44)
[2017-07-09] MEDS: CALCIUM (CARBONATE)/VITAMIN D 500 MG-200 UNIT TABLET PO SCH (09:05)
[2017-07-09] MEDS: methylPREDNISolone SOD SUC 40 MG/1 ML VIAL IV SCH ×2 (09:45→20:44)
[2017-07-09] MEDS: MAGNESIUM OXIDE 400 MG TABLET PO SCH ×3 (11:55→20:55)
[2017-07-09] MEDS: AZITHROMYCIN INJ 250 MG in SODIUM CHLORIDE 0.9% 250 ML IV SCH (15:42)
[2017-07-09] MEDS: ATORVASTATIN 20 MG TABLET PO SCH (20:50)
[2017-07-10] MEDS: ALBUTEROL/IPRATROPIUM 3 ML NEB RESP TX SCH ×6 (00:12→19:46)
[2017-07-10] MEDS: INSULIN LISPRO 100 UNIT/ML SUBCUT SCH ×6 (01:09→21:08)
[2017-07-10] MEDS: ENOXAPARIN 40 MG/0.4 ML SYRINGE SUBCUT SCH (01:10)
[2017-07-10] MEDS: DOBUTamine 500 MG/250 ML PREMIX IV SCH (01:10)
[2017-07-10 04:27] LABS: ABG HCO3 28.9 MMOL/L (20-26); ABG Oxygen Saturation 92.7 % (95-100); ABG PH 7.477 (7.35-7.45); ABG PO2 69.2 MM HG (80-95); ABG TCO2 30.1 MMOL/L (23-27); Allen Test Positive; Pt O2 Delivery Device BIPAP
[2017-07-10 05:40] LABS: Basophils % 0.2 % (0.0-0.8); Eosinophils % 0.1 % (0.00-10.9); Hematocrit 40.2 VOL% (35.7-47.0); Hemoglobin 13.8 GM/DL (12.0-16.0); Immature Granulocytes % 1.8 %; Immature Granulocytes Absolute 0.23 #; Lymphocytes # 1.6 10*3/uL (1.4-4.0); Lymphocytes % 12.5 % (21.3-54.2); Mean Corpuscular HGB Conc 34.3 GM/DL (32-36); Mean Corpuscular Hemoglobin 31 PG (27-34); Mean Corpuscular Volume 88.7 FL (87-102); Mean Platelet Volume 10.1 FL (9.6-12.0); Monocytes # 0.7 10*3/uL (0.11-0.8); Monocytes % 5.3 % (1.7-12.7); Neutrophils # 10.5 10*3/uL (1.4-7.4); Neutrophils % 80.1 % (38.7-73.9); Platelet Count 365 T/CUMM (130-400); Red Blood Count 4.53 MC/CUMM (3.8-5.5); Red Cell Distribution Width 13.5 % (9.3-17.3); White Blood Count 13.1 T/CUMM (4-12)
[2017-07-10 06:20] LABS: Calcium 9.2 MG/DL (8.5-10.1); Osmolality,Calculated 282.4 MOS/KG (273-304); Potassium 4.2 MMOL/L (3.5-5.1)
[2017-07-10] MEDS: CITALOPRAM 40 MG TABLET PO SCH (08:05)
[2017-07-10] MEDS: CHOLECALCIFEROL 1,000 UNIT TABLET PO SCH (08:05)
[2017-07-10] MEDS: GABAPENTIN 600 MG TABLET PO SCH ×2 (08:05→20:30)
[2017-07-10] MEDS: MIDODRINE 5 MG TABLET PO SCH ×4 (08:05→20:30)
[2017-07-10] MEDS: CALCIUM (CARBONATE)/VITAMIN D 500 MG-200 UNIT TABLET PO SCH (08:05)
[2017-07-10] MEDS: ASPIRIN 325 MG TABLET PO SCH (08:05)
[2017-07-10] MEDS: PANTOPRAZOLE 40 MG TABLET PO SCH (08:06)
[2017-07-10] MEDS: DOCUSATE SODIUM 100 MG CAPSULE PO SCH ×2 (08:06→20:31)
[2017-07-10] MEDS: MAGNESIUM OXIDE 400 MG TABLET PO SCH ×3 (08:07→20:31)
[2017-07-10] MEDS: methylPREDNISolone SOD SUC 40 MG/1 ML VIAL IV SCH (08:49)
[2017-07-10] MEDS: NICOTINE 21 MG/24 HR PATCH TRANSDERM SCH (08:50)
[2017-07-10] MEDS: predniSONE 20 MG TABLET PO SCH (11:22)
[2017-07-10] MEDS: ATORVASTATIN 20 MG TABLET PO SCH (20:31)
[2017-07-11] MEDS: ALBUTEROL/IPRATROPIUM 3 ML NEB RESP TX SCH ×6 (00:05→19:27)
[2017-07-11] MEDS: INSULIN LISPRO 100 UNIT/ML SUBCUT SCH ×6 (00:58→21:31)
[2017-07-11] MEDS: ENOXAPARIN 40 MG/0.4 ML SYRINGE SUBCUT SCH (01:03)
[2017-07-11 03:13] LABS: ABG Base Excess 3.6 MMOL/L (-2.5-2.5); ABG HCO3 27.6 MMOL/L (20-26); ABG Oxygen Saturation 97.3 % (95-100); ABG PCO2 40.5 MM HG (35-48); ABG PH 7.447 (7.35-7.45); ABG PO2 90.3 MM HG (80-95); ABG TCO2 24.2 MMOL/L (23-27)
[2017-07-11] MEDS: DOBUTamine 500 MG/250 ML PREMIX IV SCH (05:52)
[2017-07-11 06:20] LABS: Basophils % 0.2 % (0.0-0.8); Eosinophils # 0.1 10*3/uL (0.0-0.87); Eosinophils % 0.5 % (0.00-10.9); Hematocrit 39.1 VOL% (35.7-47.0); Hemoglobin 13.1 GM/DL (12.0-16.0); Immature Granulocytes % 1.8 %; Immature Granulocytes Absolute 0.28 #; Lymphocytes # 3.4 10*3/uL (1.4-4.0); Lymphocytes % 21.7 % (21.3-54.2); Mean Corpuscular HGB Conc 33.5 GM/DL (32-36); Mean Corpuscular Hemoglobin 30 PG (27-34); Mean Corpuscular Volume 89.9 FL (87-102); Mean Platelet Volume 10.3 FL (9.6-12.0); Monocytes # 1.4 10*3/uL (0.11-0.8); Monocytes % 8.7 % (1.7-12.7); Neutrophils # 10.7 10*3/uL (1.4-7.4); Neutrophils % 67.1 % (38.7-73.9); Platelet Count 386 T/CUMM (130-400); Red Blood Count 4.35 MC/CUMM (3.8-5.5); Red Cell Distribution Width 13.6 % (9.3-17.3); White Blood Count 15.9 T/CUMM (4-12)
[2017-07-11 06:53] LABS: Calcium 9.7 MG/DL (8.5-10.1); Osmolality,Calculated 286.1 MOS/KG (273-304); Potassium 3.6 MMOL/L (3.5-5.1)
[2017-07-11] MEDS: ASPIRIN 325 MG TABLET PO SCH (09:32)
[2017-07-11] MEDS: predniSONE 20 MG TABLET PO SCH (09:32)
[2017-07-11] MEDS: CHOLECALCIFEROL 1,000 UNIT TABLET PO SCH (09:33)
[2017-07-11] MEDS: MIDODRINE 5 MG TABLET PO SCH ×4 (09:33→20:42)
[2017-07-11] MEDS: DOCUSATE SODIUM 100 MG CAPSULE PO SCH ×2 (09:33→20:42)
[2017-07-11] MEDS: CITALOPRAM 40 MG TABLET PO SCH (09:33)
[2017-07-11] MEDS: CALCIUM (CARBONATE)/VITAMIN D 500 MG-200 UNIT TABLET PO SCH (09:33)
[2017-07-11] MEDS: PANTOPRAZOLE 40 MG TABLET PO SCH (09:33)
[2017-07-11] MEDS: NICOTINE 21 MG/24 HR PATCH TRANSDERM SCH (09:34)
[2017-07-11] MEDS: MAGNESIUM OXIDE 400 MG TABLET PO SCH ×3 (09:42→20:42)
[2017-07-11] MEDS: GABAPENTIN 600 MG TABLET PO SCH ×2 (09:44→20:42)
[2017-07-11] MEDS ORDERED: SODIUM CHLORIDE 0.9% 250 ML IV ONE (16:18)
[2017-07-11] MEDS: SODIUM CHLORIDE 0.9% 1,000 ML IV SCH (17:00)
[2017-07-11] MEDS: ATORVASTATIN 20 MG TABLET PO SCH (20:42)
[2017-07-12] MEDS: ALBUTEROL/IPRATROPIUM 3 ML NEB RESP TX SCH ×7 (00:13→23:16)
[2017-07-12] MEDS: ENOXAPARIN 40 MG/0.4 ML SYRINGE SUBCUT SCH (00:40)
[2017-07-12] MEDS: INSULIN LISPRO 100 UNIT/ML SUBCUT SCH ×6 (00:41→21:12)
[2017-07-12 03:42] LABS: ABG Base Excess 4.3 MMOL/L (-2.5-2.5); ABG HCO3 28.7 MMOL/L (20-26); ABG Oxygen Saturation 94.4 % (95-100); ABG PCO2 41.9 MM HG (35-48); ABG PH 7.453 (7.35-7.45); ABG PO2 77.2 MM HG (80-95)
[2017-07-12 05:40] LABS: Basophils % 0.1 % (0.0-0.8); Eosinophils # 0.1 10*3/uL (0.0-0.87); Eosinophils % 0.6 % (0.00-10.9); Hematocrit 34.9 VOL% (35.7-47.0); Hemoglobin 12.1 GM/DL (12.0-16.0); Immature Granulocytes % 1.6 %; Immature Granulocytes Absolute 0.24 #; Lymphocytes # 2.8 10*3/uL (1.4-4.0); Mean Corpuscular HGB Conc 34.7 GM/DL (32-36); Mean Corpuscular Hemoglobin 31 PG (27-34); Mean Corpuscular Volume 88.8 FL (87-102); Mean Platelet Volume 10.2 FL (9.6-12.0); Monocytes # 1.5 10*3/uL (0.11-0.8); Monocytes % 10.2 % (1.7-12.7); Neutrophils % 68.5 % (38.7-73.9); Platelet Count 335 T/CUMM (130-400); Red Blood Count 3.93 MC/CUMM (3.8-5.5); Red Cell Distribution Width 13.5 % (9.3-17.3); White Blood Count 14.6 T/CUMM (4-12)
[2017-07-12 06:14] LABS: Osmolality,Calculated 285.4 MOS/KG (273-304); Potassium 3.8 MMOL/L (3.5-5.1)
[2017-07-12] MEDS: SODIUM CHLORIDE 0.9% 1,000 ML IV SCH ×2 (06:47→21:14)
[2017-07-12] MEDS: DOBUTamine 500 MG/250 ML PREMIX IV SCH (06:47)
[2017-07-12 06:54] LABS: Apearance,Urine Slightly Hazy (Clear); Bilirubin,Urine Negative (Negative); Blood, Urine Negative (Negative); Glucose,Urine (UA) Negative (Negative); Ketones,Urine Negative (Negative); Mucus,Urine Occasional /LPF (Occasional); Nitrite,Urine Negative (Negative); Protein,Urine Negative; RBC,Urine 10 /HPF (0-4); Squamous Epithelial Cell,Urine Occasional /HPF (0-10); Urine Color Yellow (Yellow); Urine Specific Gravity 1.017 (1.001-1.035); Urine Urobilinogen < 2.0 EU/DL (0.2-1.0); WBC,Urine 37 /HPF (0-6)
[2017-07-12] MEDS: predniSONE 20 MG TABLET PO SCH (09:49)
[2017-07-12] MEDS: GABAPENTIN 600 MG TABLET PO SCH ×2 (09:49→20:58)
[2017-07-12] MEDS: NICOTINE 21 MG/24 HR PATCH TRANSDERM SCH (09:49)
[2017-07-12] MEDS: PANTOPRAZOLE 40 MG TABLET PO SCH (09:49)
[2017-07-12] MEDS: CITALOPRAM 40 MG TABLET PO SCH (09:50)
[2017-07-12] MEDS: MIDODRINE 5 MG TABLET PO SCH ×4 (09:50→20:58)
[2017-07-12] MEDS: CALCIUM (CARBONATE)/VITAMIN D 500 MG-200 UNIT TABLET PO SCH (09:50)
[2017-07-12] MEDS: DOCUSATE SODIUM 100 MG CAPSULE PO SCH ×2 (09:50→20:58)
[2017-07-12] MEDS: CHOLECALCIFEROL 1,000 UNIT TABLET PO SCH (09:51)
[2017-07-12] MEDS: ASPIRIN 325 MG TABLET PO SCH (09:51)
[2017-07-12] MEDS: MAGNESIUM OXIDE 400 MG TABLET PO SCH ×3 (12:07→20:58)
[2017-07-12] MEDS: POTASSIUM CHLORIDE 20 MEQ TABLET PO PRN (15:20)
[2017-07-12] MEDS: ATORVASTATIN 20 MG TABLET PO SCH (20:58)
[2017-07-12] MEDS: ACETAMINOPHEN 325 MG TABLET PO PRN (23:06)
[2017-07-13] MEDS: INSULIN LISPRO 100 UNIT/ML SUBCUT SCH ×6 (00:50→21:19)
[2017-07-13] MEDS: ALBUTEROL/IPRATROPIUM 3 ML NEB RESP TX SCH ×6 (03:21→23:50)
[2017-07-13] MEDS: DOBUTamine 500 MG/250 ML PREMIX IV SCH (04:07)
[2017-07-13 06:04] LABS: Basophils % 0.1 % (0.0-0.8); Eosinophils # 0.1 10*3/uL (0.0-0.87); Immature Granulocytes % 1.3 %; Immature Granulocytes Absolute 0.16 #; Lymphocytes % 24.6 % (21.3-54.2); Mean Corpuscular HGB Conc 32.4 GM/DL (32-36); Mean Corpuscular Hemoglobin 30 PG (27-34); Mean Corpuscular Volume 92.4 FL (87-102); Mean Platelet Volume 9.9 FL (9.6-12.0); Monocytes # 1.2 10*3/uL (0.11-0.8); Monocytes % 9.6 % (1.7-12.7); Neutrophils # 7.8 10*3/uL (1.4-7.4); Neutrophils % 63.4 % (38.7-73.9); Platelet Count 344 T/CUMM (130-400); Red Blood Count 3.68 MC/CUMM (3.8-5.5); Red Cell Distribution Width 13.6 % (9.3-17.3); White Blood Count 12.2 T/CUMM (4-12)
[2017-07-13 06:28] LABS: Calcium 8.9 MG/DL (8.5-10.1); Osmolality,Calculated 285.3 MOS/KG (273-304); Potassium 4.2 MMOL/L (3.5-5.1)
[2017-07-13] MEDS: NICOTINE 21 MG/24 HR PATCH TRANSDERM SCH (08:56)
[2017-07-13] MEDS: MAGNESIUM OXIDE 400 MG TABLET PO SCH ×3 (08:57→21:17)
[2017-07-13] MEDS: predniSONE 20 MG TABLET PO SCH (08:57)
[2017-07-13] MEDS: MIDODRINE 5 MG TABLET PO SCH ×4 (08:57→21:18)
[2017-07-13] MEDS: PANTOPRAZOLE 40 MG TABLET PO SCH (08:57)
[2017-07-13] MEDS: DOCUSATE SODIUM 100 MG CAPSULE PO SCH ×2 (08:58→21:20)
[2017-07-13] MEDS: CHOLECALCIFEROL 1,000 UNIT TABLET PO SCH (08:58)
[2017-07-13] MEDS: ASPIRIN 325 MG TABLET PO SCH (08:58)
[2017-07-13] MEDS: CITALOPRAM 40 MG TABLET PO SCH (08:58)
[2017-07-13] MEDS: CALCIUM (CARBONATE)/VITAMIN D 500 MG-200 UNIT TABLET PO SCH (08:59)
[2017-07-13] MEDS: ENOXAPARIN 40 MG/0.4 ML SYRINGE SUBCUT SCH (08:59)
[2017-07-13] MEDS: GABAPENTIN 600 MG TABLET PO SCH ×2 (08:59→21:18)
[2017-07-13] MEDS: SODIUM CHLORIDE 0.9% 1,000 ML IV SCH (12:37)
[2017-07-13] MEDS ORDERED: FLUCONAZOLE 150 MG TABLET PO ONE (16:37)
[2017-07-13] MEDS: ACETAMINOPHEN 325 MG TABLET PO PRN (21:18)
[2017-07-13] MEDS: ATORVASTATIN 20 MG TABLET PO SCH (21:18)
[2017-07-14] MEDS: INSULIN LISPRO 100 UNIT/ML SUBCUT SCH ×6 (00:07→20:19)
[2017-07-14] MEDS: ALBUTEROL/IPRATROPIUM 3 ML NEB RESP TX SCH ×6 (04:15→23:21)
[2017-07-14] MEDS: NICOTINE 21 MG/24 HR PATCH TRANSDERM SCH (09:11)
[2017-07-14] MEDS: ENOXAPARIN 40 MG/0.4 ML SYRINGE SUBCUT SCH (09:11)
[2017-07-14] MEDS: predniSONE 20 MG TABLET PO SCH (09:12)
[2017-07-14] MEDS: CITALOPRAM 40 MG TABLET PO SCH (09:13)
[2017-07-14] MEDS: MAGNESIUM OXIDE 400 MG TABLET PO SCH ×3 (09:13→20:18)
[2017-07-14] MEDS: CHOLECALCIFEROL 1,000 UNIT TABLET PO SCH (09:13)
[2017-07-14] MEDS: MIDODRINE 5 MG TABLET PO SCH ×4 (09:14→20:18)
[2017-07-14] MEDS: CALCIUM (CARBONATE)/VITAMIN D 500 MG-200 UNIT TABLET PO SCH (09:14)
[2017-07-14] MEDS: PANTOPRAZOLE 40 MG TABLET PO SCH (09:14)
[2017-07-14] MEDS: DOCUSATE SODIUM 100 MG CAPSULE PO SCH ×2 (09:16→20:19)
[2017-07-14] MEDS: GABAPENTIN 600 MG TABLET PO SCH ×2 (09:16→20:17)
[2017-07-14] MEDS: ASPIRIN 325 MG TABLET PO SCH (09:17)
[2017-07-14] MEDS: ACETAMINOPHEN 325 MG TABLET PO PRN (20:18)
[2017-07-14] MEDS: ATORVASTATIN 20 MG TABLET PO SCH (20:18)
[2017-07-14] MEDS ORDERED: INSULIN GLARGINE 100 UNIT/ML SUBCUT SCH (21:00)
[2017-07-15] MEDS: INSULIN LISPRO 100 UNIT/ML SUBCUT SCH ×6 (01:03→20:56)
[2017-07-15] MEDS: ALBUTEROL/IPRATROPIUM 3 ML NEB RESP TX SCH ×6 (03:11→23:51)
[2017-07-15] MEDS: CITALOPRAM 40 MG TABLET PO SCH (09:31)
[2017-07-15] MEDS: CHOLECALCIFEROL 1,000 UNIT TABLET PO SCH (09:31)
[2017-07-15] MEDS: MAGNESIUM OXIDE 400 MG TABLET PO SCH ×3 (09:31→20:55)
[2017-07-15] MEDS: DOCUSATE SODIUM 100 MG CAPSULE PO SCH ×2 (09:31→20:55)
[2017-07-15] MEDS: ASPIRIN 325 MG TABLET PO SCH (09:31)
[2017-07-15] MEDS: CALCIUM (CARBONATE)/VITAMIN D 500 MG-200 UNIT TABLET PO SCH (09:31)
[2017-07-15] MEDS: GABAPENTIN 600 MG TABLET PO SCH ×2 (09:32→20:55)
[2017-07-15] MEDS: NICOTINE 21 MG/24 HR PATCH TRANSDERM SCH (09:32)
[2017-07-15] MEDS: PANTOPRAZOLE 40 MG TABLET PO SCH (09:32)
[2017-07-15] MEDS: MIDODRINE 5 MG TABLET PO SCH ×4 (09:32→20:55)
[2017-07-15] MEDS: ENOXAPARIN 40 MG/0.4 ML SYRINGE SUBCUT SCH (09:33)
[2017-07-15] MEDS: predniSONE 20 MG TABLET PO SCH (10:16)
[2017-07-15] MEDS: ACETAMINOPHEN 325 MG TABLET PO PRN (16:32)
[2017-07-15] MEDS: AZTREONAM 500 MG in SYRINGE 1 EACH IV SCH (18:22)
[2017-07-15] MEDS: ATORVASTATIN 20 MG TABLET PO SCH (20:55)
[2017-07-15] MEDS: INSULIN GLARGINE 100 UNIT/ML SUBCUT SCH (20:55)
[2017-07-16] MEDS: INSULIN LISPRO 100 UNIT/ML SUBCUT SCH ×6 (00:20→20:18)
[2017-07-16] MEDS: ALBUTEROL/IPRATROPIUM 3 ML NEB RESP TX SCH ×5 (03:45→20:51)
[2017-07-16 05:06] LABS: Basophils % 0.2 % (0.0-0.8); Eosinophils # 0.2 10*3/uL (0.0-0.87); Eosinophils % 1.8 % (0.00-10.9); Hemoglobin 10.4 GM/DL (12.0-16.0); Immature Granulocytes % 1.8 %; Lymphocytes # 3.5 10*3/uL (1.4-4.0); Lymphocytes % 31.5 % (21.3-54.2); Mean Corpuscular HGB Conc 32.5 GM/DL (32-36); Mean Corpuscular Hemoglobin 30 PG (27-34); Mean Corpuscular Volume 91.7 FL (87-102); Mean Platelet Volume 9.6 FL (9.6-12.0); Monocytes # 0.8 10*3/uL (0.11-0.8); Monocytes % 7.5 % (1.7-12.7); Neutrophils # 6.4 10*3/uL (1.4-7.4); Neutrophils % 57.2 % (38.7-73.9); Platelet Count 350 T/CUMM (130-400); Red Blood Count 3.49 MC/CUMM (3.8-5.5); Red Cell Distribution Width 13.6 % (9.3-17.3); White Blood Count 11.2 T/CUMM (4-12)
[2017-07-16 05:34] LABS: Calcium 9.4 MG/DL (8.5-10.1); Osmolality,Calculated 281.7 MOS/KG (273-304); Potassium 4.6 MMOL/L (3.5-5.1)
[2017-07-16] MEDS: AZTREONAM 500 MG in SYRINGE 1 EACH IV SCH ×2 (06:03→20:24)
[2017-07-16] MEDS: CALCIUM (CARBONATE)/VITAMIN D 500 MG-200 UNIT TABLET PO SCH (08:22)
[2017-07-16] MEDS: NICOTINE 21 MG/24 HR PATCH TRANSDERM SCH (08:22)
[2017-07-16] MEDS: GABAPENTIN 600 MG TABLET PO SCH ×2 (08:23→20:17)
[2017-07-16] MEDS: MAGNESIUM OXIDE 400 MG TABLET PO SCH ×3 (08:23→20:16)
[2017-07-16] MEDS: CITALOPRAM 40 MG TABLET PO SCH (08:23)
[2017-07-16] MEDS: PANTOPRAZOLE 40 MG TABLET PO SCH (08:23)
[2017-07-16] MEDS: MIDODRINE 5 MG TABLET PO SCH ×4 (08:23→20:16)
[2017-07-16] MEDS: predniSONE 20 MG TABLET PO SCH (08:23)
[2017-07-16] MEDS: DOCUSATE SODIUM 100 MG CAPSULE PO SCH ×2 (08:23→20:17)
[2017-07-16] MEDS: ASPIRIN 325 MG TABLET PO SCH (08:24)
[2017-07-16] MEDS: CHOLECALCIFEROL 1,000 UNIT TABLET PO SCH (08:24)
[2017-07-16] MEDS: ENOXAPARIN 40 MG/0.4 ML SYRINGE SUBCUT SCH (08:31)
[2017-07-16] MEDS: BUDESONIDE/FORMOTEROL 160-4.5 INHALER 6 GM INH SCH ×2 (10:16→20:17)
[2017-07-16] MEDS: ATORVASTATIN 20 MG TABLET PO SCH (20:17)
[2017-07-16] MEDS: INSULIN GLARGINE 100 UNIT/ML SUBCUT SCH (20:17)
[2017-07-16] MEDS: ACETAMINOPHEN 325 MG TABLET PO PRN (20:17)
[2017-07-17] MEDS: ALBUTEROL/IPRATROPIUM 3 ML NEB RESP TX SCH ×5 (00:19→15:48)
[2017-07-17] MEDS: INSULIN LISPRO 100 UNIT/ML SUBCUT SCH ×5 (00:39→16:32)
[2017-07-17] MEDS: AZTREONAM 500 MG in SYRINGE 1 EACH IV SCH (09:25)
[2017-07-17] MEDS: BUDESONIDE/FORMOTEROL 160-4.5 INHALER 6 GM INH SCH (09:25)
[2017-07-17] MEDS: CITALOPRAM 40 MG TABLET PO SCH (09:26)
[2017-07-17] MEDS: CHOLECALCIFEROL 1,000 UNIT TABLET PO SCH (09:26)
[2017-07-17] MEDS: ASPIRIN 325 MG TABLET PO SCH (09:26)
[2017-07-17] MEDS: NICOTINE 21 MG/24 HR PATCH TRANSDERM SCH (09:26)
[2017-07-17] MEDS: ENOXAPARIN 40 MG/0.4 ML SYRINGE SUBCUT SCH (09:26)
[2017-07-17] MEDS: CALCIUM (CARBONATE)/VITAMIN D 500 MG-200 UNIT TABLET PO SCH (09:26)
[2017-07-17] MEDS: MAGNESIUM OXIDE 400 MG TABLET PO SCH ×2 (09:26→15:50)
[2017-07-17] MEDS: PANTOPRAZOLE 40 MG TABLET PO SCH (09:27)
[2017-07-17] MEDS: GABAPENTIN 600 MG TABLET PO SCH (09:27)
[2017-07-17] MEDS: DOCUSATE SODIUM 100 MG CAPSULE PO SCH (09:27)
[2017-07-17] MEDS: predniSONE 20 MG TABLET PO SCH (09:27)
[2017-07-17] MEDS: MIDODRINE 5 MG TABLET PO SCH ×3 (09:27→16:33)
[2017-07-17 16:44] VITALS: BP 103/52
== END 2017-07-17 18:29 | disposition home or self-care (01) | DRG 871 ==
LOC: EDBD → EDUNIT# → N.ED 19:30 → SUATTDRO 06-28 00:18 → N.EDINP 06-28 00:18 → N.CC 06-28 00:55 → N.TELEN 07-05 18:06 → N.CC 07-07 00:54 → N.2E 07-12 15:19
PROVIDERS: ATTEND Internal Medicine